=== PATIENT | male | born 1960 | race Caucasian/White ===

== ENCOUNTER 2022-10-02 08:25 | Outpatient (CLI) | payer BC, SELFPAY | END 2022-10-02 08:26 | disposition home or self-care (01) | LOC: NFLDREF 10-04 10:32 | PROVIDERS: PCP Physician Assistant Medical; Referring Provider Physician Assistant Medical; Visit Provider Physician Assistant Medical | DX: Z00.00 Encounter for general adult medical examination without abnormal findings (principal); I10 Essential (primary) hypertension; R73.9 Hyperglycemia, unspecified; R73.03 Prediabetes; E55.9 Vitamin D deficiency, unspecified; D50.9 Iron deficiency anemia, unspecified; F41.9 Anxiety disorder, unspecified; Z12.5 Encounter for screening for malignant neoplasm of prostate | CPT/HCPCS: 80053; 80061; 82607; 83540; 84153; 84443 ==

== ENCOUNTER 2023-01-03 10:47 | Outpatient (CLI) | payer BC, SELFPAY | END 2023-01-03 10:48 | disposition home or self-care (01) | LOC: LKVREF 10:48 | PROVIDERS: PCP Physician Assistant Medical; Visit Provider Physician Assistant Medical | DX: R73.03 Prediabetes (principal); D50.9 Iron deficiency anemia, unspecified; E55.9 Vitamin D deficiency, unspecified | CPT/HCPCS: 82607 ==

== ENCOUNTER 2023-04-08 11:23 | Outpatient (CLI) | payer BC, SELFPAY | END 2023-04-08 11:24 | disposition home or self-care (01) | LOC: LKVREF 11:26 | PROVIDERS: PCP Physician Assistant Medical; Visit Provider Physician Assistant Medical | DX: R74.8 Abnormal levels of other serum enzymes (principal) | CPT/HCPCS: 80076 ==

== ENCOUNTER 2023-10-14 09:56 | Outpatient (CLI) | payer MEDICARE, SELFPAY ==
--- NOTE | 2023-10-14 11:03 | W.ANESCHARGE ---
Anesthesia Charges Start Date/Time Anesthesia Start Date: 10/14/23 Anesthesia Start Time: 10:33 Stop Date/Time Anesthesia Stop Date: 10/14/23 Anesthesia Stop Time: 11:00
--- NOTE | 2023-10-14 11:36 | W.ANESCHARGE ---
Anesthesia Charges Start Date/Time Anesthesia Start Date: 10/14/23 Anesthesia Start Time: 10:33 Stop Date/Time Anesthesia Stop Date: 10/14/23 Anesthesia Stop Time: 11:00
== END 2023-10-14 09:57 | disposition home or self-care (01) ==
LOC: OP CLINIC 09:57
PROVIDERS: PCP Physician Assistant Medical; Visit Provider Internal Medicine
DX: Z12.11 Encounter for screening for malignant neoplasm of colon (principal); Z86.010 Personal history of colon polyps
CPT/HCPCS: 00811; 00812; 45378; J2704

== ENCOUNTER 2024-04-09 10:03 | Outpatient (CLI) | payer MEDICARE, SELFPAY | END 2024-04-09 10:04 | disposition home or self-care (01) | LOC: NFLDREF 04-15 01:08 | PROVIDERS: PCP Physician Assistant Medical; Referring Provider Physician Assistant Medical; Visit Provider Physician Assistant Medical | DX: R73.03 Prediabetes (principal); E55.9 Vitamin D deficiency, unspecified; R74.8 Abnormal levels of other serum enzymes; D64.9 Anemia, unspecified; I10 Essential (primary) hypertension; R73.9 Hyperglycemia, unspecified; F41.9 Anxiety disorder, unspecified; Z12.5 Encounter for screening for malignant neoplasm of prostate | CPT/HCPCS: 80053; 80061; 82607; 82728; 83540; 83550; 84443; G0103 ==

== ENCOUNTER 2024-05-04 13:59 | Outpatient (CLI) | payer MEDICARE, SELFPAY | END 2024-05-04 14:00 | disposition home or self-care (01) | LOC: US 14:00 | PROVIDERS: PCP Physician Assistant Medical; Visit Provider Physician Assistant Medical | DX: G62.9 Polyneuropathy, unspecified (principal); M79.604 Pain in right leg; M79.605 Pain in left leg | CPT/HCPCS: 93922; 93924 ==

== ENCOUNTER 2024-05-18 09:33 | Outpatient (CLI) | payer MEDICARE, SELFPAY | END 2024-05-18 09:34 | disposition home or self-care (01) | LOC: LKVREF 09:35 | PROVIDERS: PCP Physician Assistant Medical; Visit Provider Physician Assistant Medical | DX: D50.9 Iron deficiency anemia, unspecified (principal) | CPT/HCPCS: 82728 ==

== ENCOUNTER 2024-08-31 09:51 | Outpatient (CLI) | payer MEDICARE, SELFPAY | END 2024-08-31 09:52 | disposition home or self-care (01) | LOC: NFLDREF 09-01 16:55 | PROVIDERS: PCP Physician Assistant Medical; Referring Provider Physician Assistant Medical; Visit Provider Physician Assistant Medical | DX: D64.9 Anemia, unspecified (principal); E78.5 Hyperlipidemia, unspecified | CPT/HCPCS: 80061; 80076; 82728; 82746 ==